=== PATIENT | male | born 1955 | race Hispanic/Latino ===

== ENCOUNTER 2021-12-30 07:35 | Emergency (ER) | payer BC ==
--- OUTSIDE RECORDS SUMMARY | 2021-12-30 07:39 | XMS REPORT | Continuity of Care Document ---
:1955 Author Organization [facility] t Address [address] [place] [address] Care Team Providers Name Role Phone Finesse Dinh Attending Clinician Unavailable SHIVA WESLEY Attending Clinician Unavailable Payers Payer Name Policy Type Policy Number Effective Date Expiration Date S [facility] [id number] 2020 PPO 00:00:00 Problems This patient has no known problems. Allergies, Adverse Reactions, Alerts Allergy Allergy Status Severity Reaction(s) Onset Inactive Treating Comm ents Source Name Type Date Date Clinician NO KNOWN Drug Active [facility] ALLERGIE Class ity of [facility] Medications Ordered Filled Start Stop Current Ordering Indication Dosage Frequency Signature Comments Components Source Medication Medication Date Date Medication? Clinician (SIG) Name Name GlipiZIDE GlipiZIDE 2020-0 Yes Finesse 1 tablet Common ER ER 5-15 Dinh with [facility] 00:00: breakfast - [facility] 00 [facility] Janumet XR Janumet XR 2019-0 2020- No Finesse TAKE 1 Common 1-07 04-06 Dinh TABLET BY [facility] 00:00: 00:00 MOUTH - [facility]I 00 :[address] DAY [facility] GlipiZIDE GlipiZIDE 2019-0 Yes Finesse TAKE 1 Common 4-08 Dinh TABLET BY [facility] 00:00: MOUTH - [facility] 00 EVERY DAY [facility] Lipitor Lipitor Yes Finesse 1 tablet Com mon Dinh [facility] - [facility] Bystolic Bystolic Yes Finesse 1 [address] [facility] Aspirin 81 Aspirin 81 Yes Finesse [address] [facility] Zestoretic Zestoretic Yes Finesse [address] [facility] GlipiZIDE GlipiZIDE Yes Finesse 1 tablet Common ER ER Dinh with [facility] breakfast [facility] Immunizations Ordered Immunization Filled Immunization Date Status Commen ts Source Name Name TDAP > 7 TDAP > 7 2019-09-11 Completed Common [facility] Years-Adacel Years-Adacel 00:00:00 - [facility] Procedures This patient has no known procedures. Encounters Start End Encounter Admission Attending Care Care Encounter Source Date/Time Date/Time Type Type Clinicians Facility Department ID 2021-06-23 Outpatient Dinh, [facility] Common 08:25:[address] [facility] 2021-06-21 Outpatient Dinh, [facility] Common 14:18:[address] [facility] 2021-05-24 Outpatient Dinh, [facility] Common 13:39:[address] [id number] [facility] 2021-05-24 Outpatient Dinh, [facility] Common 13:08:[address] [facility] 2021-05-24 Outpatient Dinh, [facility] Common 12:58:[address] [id number] [facility] 2021-05-24 Outpatient Dinh, [facility] [id number] Common 12:26:[address] [facility] 2021-05-24 Outpatient Dinh, [facility] [id number] Common 12:24:[address] [facility] 2021-05-24 Outpatient Dinh, [facility] Common 11:21:[address] [id number] [facility] 2021-11-23 2021-11-23 ambulatory [facility] [id number] Common 00:00:00 00:00:00 [facility] 2021-08-25 2021-08-25 ambulatory [facility] [id number] Common 00:00:00 00:00:00 [facility] 2021-06-23 2021-06-23 ambulatory [facility] [id number] Common 00:00:00 00:00:00 [facility] 2021-03-28 2021-03-28 ambulatory [facility] [id number] Common 00:00:00 00:00:00 [facility] 2020-11-03 2020-11-03 Outpatient [facility] [id number] Common 00:00:00 00:00:00 [facility] 2020-09-22 2020-09-22 Outpatient [facility]C ST[facility] [id number] Common 00:00:00 00:00:00 [facility] 2020-07-11 2020-07-11 Outpatient Mel WESLEY [facility] [id number] Univers 11:50:00 11:50:00 SHIVA aguirre [facility] 2020-05-30 2020-05-30 Outpatient [facility] [id number] Common 00:00:00 00:00:00 [facility] 2020-05-30 2020-05-30 Outpatient [facility]C ST[facility]C [id number] Common 00:00:00 00:00:00 [facility] 2020-05-24 2020-05-24 Outpatient [facility]MLC ST[facility]C [id number] Common 00:00:00 00:00:00 [facility] 2020-01-11 2020-01-11 [facility] [id number] Common 08:00:00 08:00:[address] [facility] 2019-09-11 2019-09-11 [facility] [id number] Common 09:00:00 09:00:[address] [facility] 2019-05-05 2019-05-05 [facility] [id number] Common 08:45:00 08:45:00 [place] [address] [facility] 2018-12-26 2018-12-26 [facility] [id number] Common 09:30:00 09:30:00 [place] [address] [facility] 2018-08-04 2018-08-04 [facility] [id number] Common 08:30:00 08:30:00 [place] [address] [facility] 2018-05-06 2018-05-06 [facility] [id number] Common 12:24:00 12:24:00 [place] [address] [facility] 2018-05-05 2018-05-05 [facility] [id number] Common 14:45:00 14:45:00 [place] [address] [facility] 2018-01-06 2018-01-06 [facility] [id number] Common 08:46:00 08:46:00 [place] [address] [facility] 2017-11-06 2017-11-06 [facility] [id number] Common 11:15:00 11:15:00 [place] [address] [facility] Results This patient has no known results.
--- NOTE | 2021-12-30 08:04 | ER ---
Nurse's Notes [facility] Name: Semaj Villela Age: 66 yrs Sex: Male : 1955 Arrival Date: 12/30/2021 Time: 07:38 Bed 12 Private MD: Finesse Dinh Diagnosis: SARS-associated coronavirus as the cause of diseases classified elsewhere Presentation: 12/30 07:42 Chief complaint: Patient states: my daughter and tested positive for COVID and iw last night I started getting chills and flu symptoms so they told me to get tested. Coronavirus screen: Client presents with at least one sign or symptom that may indicate coronavirus-19. Ebola Screen: Patient negative for fever greater than or equal to 101.5 degrees Fahrenheit, and additional compatible Ebola Virus Disease symptoms Patient denies exposure to infectious person. Patient denies travel to an Ebola-affected area in the 21 days before illness onset. No symptoms or risks identified at this time. Initial Sepsis Screen: Does the patient meet any 2 criteria? No. Patient's initial sepsis screen is negative. Does the patient have a suspected source of infection? No. Patient's initial sepsis screen is negative. Risk Assessment: Do you want to hurt yourself or someone else? Patient reports no desire to harm self or others. Onset of symptoms was December 29, 2021. 07:42 Method Of Arrival: Ambulatory iw 07:42 Acuity: URBANO 4 iw Historical: - Allergies: 07:43 No Known Allergies; iw - PMHx: 07:43 Diabetes mellitus; Hypertensive disorder; iw - PSHx: 07:43 None; iw - Immunization history:: Client reports receiving the 2nd dose of the Covid vaccine. - Social history:: Smoking status: Patient denies any tobacco usage or history of. Screenin:08 Abuse screen: Denies threats or abuse. Denies injuries from another. Nutritional iw screening: No deficits noted. Tuberculosis screening: No symptoms or risk factors identified. Fall Risk None identified. Assessment: 08:08 General: Appears in no apparent distress. Behavior is calm, cooperative. General: iw Reports chills for 12-24 hours, feeling ill for 12-24 hours. Pain: Denies pain. Neuro: Level of Consciousness is awake, alert, obeys commands, Oriented to person, place, time, situation, Moves all extremities. Full function. Cardiovascular: Patient's skin is warm and dry. Respiratory: Respiratory effort is even, unlabored, Respiratory pattern is regular, symmetrical. Derm: Skin is intact, is healthy with good turgor. Musculoskeletal: Range of motion: intact in all extremities. Vital Signs: 07:42 BP 121 / 88; Pulse 86; Resp 16; Temp 98.4; Pulse Ox 97% on R/A; iw ED Course: 07:38 Patient arrived in ED. as 07:39 Finesse Dinh DO is Private Physician. as 07:41 Low Kate MD is Attending Physician. kdr 07:43 Triage completed. iw 07:43 Adali Wood, RN is Primary Nurse. iw 07:43 Arm band placed on. iw 08:03 Finesse Dinh DO is Referral Physician. kdr 08:09 No provider procedures requiring assistance completed. iw 08:10 Patient has correct armband on for positive identification. iw 10:10 Patient did not have IV access during this emergency room visit. iw 10:14 Finesse Dinh DO is Referral Physician. kdr Administered Medications: No medications were administered Medication: 08:08 VIS not applicable for this client. iw Outcome: 08:04 Discharge ordered by . kdr 10:14 Discharge ordered by . kdr 10:23 Discharged to home ambulatory. iw 10:23 Condition: good 10:23 Discharge instructions given to patient, Instructed on discharge instructions, follow up and referral plans. Demonstrated understanding of instructions, follow-up care. 10:24 Patient left the ED. iw Signatures: Low Kate MD MD kdr Helen Villela as Adali Wood, RN RN iw
--- NOTE | 2021-12-30 08:04 | EDPHYS ---
Physician Documentation [facility] Name: Semaj Villela Age: 66 yrs Sex: Male : 1955 Arrival Date: 12/30/2021 Time: 07:38 Bed 12 Private MD: Fabrizio Count Includes [facility] ED Physician Low Kate HPI: 12/30 08:01 This 66 yrs old Male presents to ER via Ambulatory with complaints of r/o kdr covid. 08:01 The patient states that last Saturday to people in his household were diagnosed with kdr COVID. Last evening he had chills and subjective fever. Generally had malaise. He otherwise was nonacute and nontoxic. States that he is feeling better this morning.. Onset: The symptoms/episode began/occurred last night. Severity of symptoms: At their worst the symptoms were mild in the emergency department the symptoms have improved mildly. The patient has not experienced similar symptoms in the past. The patient has not recently seen a physician. Historical: - Allergies: 07:43 No Known Allergies; iw - PMHx: 07:43 Diabetes mellitus; Hypertensive disorder; iw - PSHx: 07:43 None; iw - Immunization history:: Client reports receiving the 2nd dose of the Covid vaccine. - Social history:: Smoking status: Patient denies any tobacco usage or history of. ROS: 08:01 Eyes: Negative for injury, pain, redness, and discharge, ENT: Negative for injury, kdr pain, and discharge, Neck: Negative for injury, pain, and swelling, Cardiovascular: Negative for chest pain, palpitations, and edema, Respiratory: Negative for shortness of breath, cough, wheezing, and pleuritic chest pain, Abdomen/GI: Negative for abdominal pain, nausea, vomiting, diarrhea, and constipation, Back: Negative for injury and pain, : Negative for injury, bleeding, discharge, and swelling, MS/Extremity: Negative for injury and deformity, Skin: Negative for injury, rash, and discoloration, Neuro: Negative for headache, weakness, numbness, tingling, and seizure activity. Psych: Negative for depression, anxiety, suicide ideation, homicidal ideation, and hallucinations, Allergy/Immunology: Negative for hives, rash, and allergies, Endocrine: Negative for neck swelling, polydipsia, polyuria, polyphagia, and marked weight changes, Hematologic/Lymphatic: Negative for swollen nodes, abnormal bleeding, and unusual bruising. 08:01 Constitutional: Positive for body aches, chills, fatigue, malaise, Negative for fever, poor PO intake, weight loss. Exam: 08:01 Constitutional: This is a well developed, well nourished patient who is awake, alert, kdr and in no acute distress. Head/Face: Normocephalic, atraumatic. Eyes: Pupils equal round and reactive to light, extra-ocular motions intact. Lids and lashes normal. Conjunctiva and sclera are non-icteric and not injected. Cornea within normal limits. Periorbital areas with no swelling, redness, or edema. Neck: Trachea midline, no thyromegaly or masses palpated, and no cervical lymphadenopathy. Supple, full range of motion without nuchal rigidity, or vertebral point tenderness. No Meningismus. Chest/axilla: Normal chest wall appearance and motion. Nontender with no deformity. No lesions are appreciated. Cardiovascular: Regular rate and rhythm with a normal S1 and S2. No gallops, murmurs, or rubs. Normal PMI, no JVD. No pulse deficits. Respiratory: Lungs have equal breath sounds bilaterally, clear to auscultation and percussion. No rales, rhonchi or wheezes noted. No increased work of breathing, no retractions or nasal flaring. Abdomen/GI: Soft, non-tender, with normal bowel sounds. No distension or tympany. No guarding or rebound. No evidence of tenderness throughout. Back: No spinal tenderness. No costovertebral tenderness. Full range of motion. Skin: Warm, dry with normal turgor. Normal color with no rashes, no lesions, and no evidence of cellulitis. MS/ Extremity: Pulses equal, no cyanosis. Neurovascular intact. Full, normal range of motion. Neuro: Awake and alert, GCS 15, oriented to person, place, time, and situation. Cranial nerves II-XII grossly intact. Motor strength 5/5 in all extremities. Sensory grossly intact. Cerebellar exam normal. Normal gait. Psych: Awake, alert, with orientation to person, place and time. Behavior, mood, and affect are within normal limits. Vital Signs: 07:42 BP 121 / 88; Pulse 86; Resp 16; Temp 98.4; Pulse Ox 97% on R/A; iw MDM: 08:01 Data reviewed: vital signs, nurses notes, lab test result(s). Counseling: I had a kdr detailed discussion with the patient and/or guardian regarding: the historical points, exam findings, and any diagnostic results supporting the discharge/admit diagnosis, lab results, the need for outpatient follow up. 08:04 Patient medically screened. kdr 12/30 07:42 Order name: COVID-19 SARS RT PCR (Document "Date of Onset" if Symptomatic) kdr 12/30 07:42 Order name: Flu; Complete Time: 08:44 kdr Administered Medications: No medications were administered Disposition Summary: 12/30/21 10:14 Discharge Ordered Location: Home(12/30/21 10:14) kdr Problem: new(12/30/21 10:14) kdr Symptoms: have improved(12/30/21 10:14) kdr Condition: Stable(12/30/21 10:14) kdr Diagnosis - SARS-associated coronavirus as the cause of diseases classified elsewhere kdr Followup: kdr - With: Finesse Dinh, DO - When: 2 - 3 days - Reason: If symptoms return, Further diagnostic work-up, Recheck today's complaints, Continuance of care, Re-evaluation by your physician Discharge Instructions: - Discharge Summary Sheet kdr - Form - Excuse from Work, School, or Physical Activity kdr - COVID-19 kdr - Things to Know about the COVID-19 Pandemic - [facility] kdr - 10 Things You Can Do to Manage Your COVID-19 Symptoms at Home - [facility] kdr - COVID-19: Quarantine vs. Isolation - [facility] kdr - Prevent the Spread of COVID-19 if You Are Sick - [facility] kdr Forms: - Medication Reconciliation Form kdr - Thank You Letter kdr Prescriptions: - Ibuprofen 600 mg Oral Tablet - take 1 tablet by ORAL route every 6 hours As needed take with food; 30 tablet; kdr Refills: 0, Product Selection Permitted Signatures: [facility] Low Kate MD MD kdr Adali Wood RN RN iw Corrections: (The following items were deleted from the chart) 08:05 08:04 Home kdr kdr 08:05 08:04 new kdr kdr 08:05 08:04 have improved kdr kdr 08:05 08:04 Stable kdr kdr 08:05 08:04 Viral infection, unspecified kdr kdr 08:05 08:04 Other malaise and fatigue kdr kdr
[2021-12-30 10:49] VITALS: BP 121/88; TEMP 98.4; O2SAT 97
== END 2021-12-30 10:24 | disposition home or self-care (01) ==
LOC: ER 07:35
DX: U07.1 COVID-19 (principal); E11.9 Type 2 diabetes mellitus without complications; I10 Essential (primary) hypertension
CPT/HCPCS: 87804 ×2; 99281; U0003